=== PATIENT | female | born 1965 | race Caucasian/White ===

== ENCOUNTER 2019-10-04 09:29 | Outpatient (CLI) | payer OTHER, SELFPAY ==
--- NOTE | 2019-10-04 09:40 | MM_ITS ---
WS: [id number] BILATERAL DIGITAL SCREENING MAMMOGRAM WITH CAD CLINICAL INFORMATION: SCREENING HISTORY: Screening mammogram. NEW RIGHT BREAST LUMP PAINFUL. COMPARISON: November 04, 2018 TECHNIQUE: Bilateral CC and MLO views. FINDINGS: Fatty-replaced breasts bilaterally. No suspicious focal mass, asymmetry, calcifications, or technology architect ural distortion. Lucent centered calcifications. No definite mammographic abnormalities in the area o f palpable concern. However, recommend spot compression views and ultrasound of the palpable abnormal ity if persistent. Left breast is unchanged. MM/[place] [id number] IMPRESSION: BI-RADS: 0-Incomplete: Need additional imaging evaluation FOLLOW UP: Need Additional Imaging
== END 2019-10-04 09:30 | disposition home or self-care (01) ==
LOC: RADSHAW 09:36
PROVIDERS: Family Provider Family Medicine; PCP Family Medicine; Visit Provider Family Medicine
DX: Z12.31 Encounter for screening mammogram for malignant neoplasm of breast (principal)
CPT/HCPCS: 77067

== ENCOUNTER 2019-10-11 09:40 | Outpatient (CLI) | payer OTHER, SELFPAY ==
--- NOTE | 2019-10-11 10:14 | MM_ITS ---
WS: [id number] Right breast diagnostic digital mammogram, 10/11/2019 Clinical Data: RIGHT BREAST PAIN Comparison: 10/04/2019, 11/04/2018, 10/15/2017, 09/04/2016, 02/04/2015, 02/02/2014. Findings: There are no spiculated masses or clustered calcifications. There are no secondary signs of carcinoma . The breast parenchymal pattern reveals fat replacement. MM/[place] [id number] Impression: 1. Negative additional views of the right breast. 2. Recommend annual screening mammograms and clinical follow-up. BIRADS: 1-Negative FOLLOW UP: See Report The CAD cloth checker was used.
--- NOTE | 2019-10-11 10:44 | US_ITS ---
WS: [id number] Right breast ultrasound, 10/11/2019 Clinical Data: RT BREAST PAIN Comparison: Right breast mammogram, 10/11/2019 Findings: In the lateral aspect of the right breast at the 3:00 position there is a small simple cyst measuring 0.26 x 0.31 x 0.36 cm. No abnormal masses were noted. US/US breast RT limited* [id number] Impression: 1. Negative for 6 negative right breast abnormality. 2. Recommend clinical follow-up and annual screening mammograms. BIRADS: 1-Negative FOLLOW UP: See Report
== END 2019-10-11 09:41 | disposition home or self-care (01) ==
LOC: RADSHAW 09:43
PROVIDERS: Family Provider Family Medicine; PCP Family Medicine; Visit Provider Family Medicine
DX: N64.4 Mastodynia (principal)
CPT/HCPCS: 76642; 77065

== ENCOUNTER 2020-04-23 07:27 | Day surgery (SDC) | payer OTHER, SELFPAY ==
[2020-04-19 13:46] VITALS: BMI 31.3
[2020-04-23 07:43] VITALS: BMI 31.3
--- NOTE | 2020-04-23 07:45 | P.HP_ITS ---
Same Day Surgery H&P Indication for Procedure/HPI DATE OF PROCEDURE: April 23, 2020 CHIEF COMPLAINT/INDICATIONFOR SURGICAL PROCEDURE: Rectal polyp PREOP DIAGNOSIS: Rectal polyp PLANNED PROCEDRUE: Operation Date: 04/23/20 09:00 Proposed Procedures p Sigmoidoscopy 62901 Z86.010(Not Applicable) - Jorge Israel MD Medications/Allergies* Home Medications Medication Instructions Recorded Confirmed Type atorvastatin 10 mg tablet 5 mg PO DAILY tab 02/12/20 04/23/20 History carvedilol 3.125 mg tablet 3.125 mg PO BID 02/12/20 04/23/20 History doxycycline hyclate 100 mg capsule 100 mg PO DAILY PRN 02/12/20 04/23/20 History levothyroxine 50 mcg capsule 50 mcg PO DAILY 02/12/20 04/23/20 History metformin 500 mg tablet 500 mg PO DAILY 02/12/20 04/23/20 History sumatriptan succinate 100 mg tablet 100 mg PO Q2H PRN 02/12/20 04/19/20 History desvenlafaxine succinate 50 mg PO DAILY 02/19/20 04/23/20 History glimepiride 2 mg PO DAILY 02/19/20 04/23/20 History meloxicam 15 mg PO DAILY 02/19/20 04/23/20 History Allergies/Adverse Reactions Allergy/AdvReac Type Severity Reaction Status Date / Time strawberry Allergy ALGY-Anaphy Verified 04/19/20 13:42 laxis lisinopril AdvReac Coughing Verified 04/19/20 13:42 Pertinent History/Comorbid Conditions* Medical History (Updated 02/19/20 @ 14:21 by Julián Woods MD) Diabetes mellitus Diagnosed in 2015-on medication. Last hemoglobin A1c was in the beginning of 2019 and was less than 7. Managed by Dr. Pizano. Does not have an clerical aide teacher HTN (hypertension), benign 2019--controlled with medication. Managed by primary care provider Hypercholesterolemia Controlled with medication managed by primary care provider Dr. Pizano Hypothyroidism Diagnosed in 1999 and controlled with medication managed by PMD. Does not have an clerical aide teacher. Migraine Controlled with sumatriptan as needed. Does not have a neurologist and follows up with primary care provider No pertinent past medical history Denies asthma, seizures, DVT/PE. PMD: Dr. Pizano Surgical History (Updated 02/19/20 @ 14:21 by Julián Woods MD) History of cholecystectomy Laparoscopic procedure in 2010 History of hysteroscopy Had some sort of her hysteroscopic procedure by Dr. Lam in the 1980s and at this time was diagnosed with having 2 cervixes. She does not remember many details about this procedure History of tonsillectomy At the age of 7 Family History (Updated 02/19/20 @ 15:06 by Dulce Marinelli, HEBERT) Diabetes Sister Father Heart disease Sister Father Brother Hyperlipidemia Father Breast cancer Family/Other paternal aunt, diagnosed in her 60s Cancer of kidney Sister Hypertension Mother Thyroid condition Mother Stroke Sister x 2 Denies family history of Colon cancer Ovarian cancer Anesthesia complication Bleeding disorder Uterine cancer Social History Smoking and tobacco status: never smoked Additional social history: Tobacco use: Denies Alcohol use: Denies Drug use: Denies 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
[2020-04-23] MEDS: Fleet Enema 133 mL Enema PR (08:00)
[2020-04-23 08:33] VITALS: BP 144/95; PULSE 74; RESP 18; TEMP 36.8; O2SAT 97
[2020-04-23 08:43] LABS: Glucose Point of Care 179 mg/dL (70-110)
[2020-04-23] MEDS: sodium chloride 0.9% 1,000 ML 30 ML IV (08:43)
--- NOTE | 2020-04-23 08:51 | ANES.PREANE2 ---
Pre-Anesthetic Assessment Pre-Anesthetic Assessment: Height/Weight: Height 1.7 m Weight 90.718 kg Temp Pulse Resp BP Pulse Ox 98.3 F 74 18 144/95 97 04/23/20 08:33 04/23/20 08:33 04/23/20 08:33 04/23/20 08:33 04/23/20 08:33 Preop Diagnosis: TVA rectum Proposed Procedure: Operation Date: 04/23/20 09:00 Proposed Procedures p Sigmoidoscopy 20785 Z86.010(Not Applicable) - Jorge Israel MD Familial anesthetic complications: None Was Beta Naa taken within 24 hours: Yes Last intake: Intake Last Liquid Date 04/22/20 Last Liquid Time 14:00 Last Solid Date 04/22/20 Last Solid Time 14:00 Social: Social History: No alcohol and No tobacco Exam: Pre-Anes Outpt Exam: alert, oriented x 3, clear to auscultation bilaterally and regular rate & rhythm Airway: Cervical ROM: WNL MP: 4 Dentition: Other (missing teeth) CV/HEM: CV/HEM: HTN Metabolic: Metabolic: DM, Hyperlipidemia and Thyroid Anesthetic Plan: ASA status: 2 Anesthesia: MAC Risk of > 500 ml blood loss (7ml/kg in children): No Meds/Allergies Current Medications: Current Medications Generic Name Dose Route Start Last Admin Trade Name Freq PRN Reason Stop Dose Admin Sodium Chloride 1,000 mls @ 30 ml s/hr 04/23/20 08:45 04/23/20 08:43 Sodium Chloride 0.9% IV 04/24/20 08:44 30 mls/hr .Q24H LOIS Administration PFSH Anesthesia PFSH: Medical History Diabetes mellitus Diagnosed in 2015-on medication. Last hemoglobin A1c was in the beginning of 2019 and was less than 7. Managed by Dr. Pizano. 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 unix system administrator HTN (hypertension), benign 2019--controlled with medication. Managed by primary care provider Hypercholesterolemia Controlled with medication managed by primary care provider Dr. Pizano Hypothyroidism Diagnosed in 1999 and controlled with medication managed by PMD. 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 unix system administrator. Migraine Controlled with sumatriptan as needed. Does not have a neurologist and follows up with primary care provider No pertinent past medical history Denies asthma, seizures, DVT/PE. PMD: Dr. Pizano Surgical History History of cholecystectomy Laparoscopic procedure in 2010 History of hysteroscopy Had some sort of her hysteroscopic procedure by Dr. Lam in the 1980s and at this time was diagnosed with having 2 cervixes. She does not remember many details about this procedure History of tonsillectomy At the age of 7 Family History Mother Hypertension Thyroid condition Family/Other Breast cancer paternal aunt, diagnosed in her 60s Sister Diabetes Stroke x 2 Heart disease Cancer of kidney Father Diabetes Heart disease Hyperlipidemia Brother Heart disease Denies family history of Colon cancer Ovarian cancer Anesthesia complication Bleeding disorder Uterine cancer Social History (Updated 02/19/20 @ 14:22 by Julián Woods MD) Smoking and tobacco status: never smoked Additional social history: Tobacco use: Denies Alcohol use: Denies Drug use: Denies 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
[2020-04-23 10:14] VITALS: BP 123/71; PULSE 68; RESP 18; TEMP 36.2; O2SAT 99
[2020-04-23 10:28] VITALS: BP 139/54; PULSE 67; RESP 18; O2SAT 95
--- NOTE | 2020-04-23 10:40 | ANE.PACU2 ---
Inpatient post-anesthesia follow up: Airway intact: Yes Vital signs: Temperature 97.1 F Pulse Rate 67 Respiratory Rate 18 Blood Pressure 139/54 Pulse Oximetry 95 Oxygen Delivery Me thod Room Air Oxygen Flow Rate 4 Fraction of Inspir ed Oxygen Hydration adequate: Yes Nausea and vomiting: No Pain level: 1 Mental status: Baseline
== END 2020-04-23 10:43 | disposition home or self-care (01) ==
PROVIDERS: PCP Family Medicine; Visit Provider Surgery
PROC: 0DJD8ZZ Inspection of Lower Intestinal Tract, Via Natural or Artificial Opening Endoscopic (ICD-10-PCS; CPT 45330; principal; 2020-04-23 09:00)
DX: Z86.010 Personal history of colon polyps (principal); Z90.49 Acquired absence of other specified parts of digestive tract; I10 Essential (primary) hypertension; E11.9 Type 2 diabetes mellitus without complications; E78.5 Hyperlipidemia, unspecified; E03.9 Hypothyroidism, unspecified; Z79.84 Long term (current) use of oral hypoglycemic drugs
CPT/HCPCS: 12345; 36416; 45330; 82962; J2704; J7030

== ENCOUNTER 2020-04-29 14:28 | Outpatient (CLI) | payer OTHER, SELFPAY ==
--- NOTE | 2020-04-29 15:08 | US_ITS ---
WS: [id number] RENAL ULTRASOUND URINARY BLADDER ULTRASOUND HISTORY: HEMATURIA COMPARISON: 11/06/2013 TECHNIQUE: 2-D and color Doppler imaging of the kidney submitted. Right kidney: 11.5 cm x 6.2 cm x 6.6 cm. Normal echogenicity with no hydronephrosis or mass. Left kidney: 12.8 cm x 6.4 cm x 6.0 cm. Normal size and echogenicity. Exophytic low-attenuation mass from the inferior LEFT kidney measures 3 .3 x 2.6 x 3.3 cm. Very slightly increased in size from the prior study. This is probably minimally c omplex cyst. Aorta: Normal. Urinary Bladder: Normal distention. US/US renal BI with bladder IMPRESSION: 1. Low-attenuation mass in the inferior pole the LEFT kidney is probably minim ally complex cyst. Minimal increase in size since 2013. As this is not complete ly cystic consider a CT follow-up evaluation to evaluate for low-grade neoplasm . Renal mass CT protocol recommended. 2. No hydronephrosis.
== END 2020-04-29 14:29 | disposition home or self-care (01) ==
LOC: US 14:34
PROVIDERS: PCP Family Medicine; Visit Provider Family Medicine
DX: R31.9 Hematuria, unspecified (principal); N28.89 Other specified disorders of kidney and ureter
CPT/HCPCS: 76770; 76857

== ENCOUNTER → 2020-05-14 12:33 | Outpatient (BNVA) | payer OTHER, SELFPAY | PROVIDERS: PCP Family Medicine; Visit Provider Family Medicine | DX: Z11.59 Encounter for screening for other viral diseases (principal) | CPT/HCPCS: 87635 ==

== ENCOUNTER 2020-05-28 12:28 | Outpatient (CLI) | payer OTHER, SELFPAY ==
--- NOTE | 2020-05-28 12:33 | CT_ITS ---
WS: [id number] CT scan of the abdomen with and without IV contrast Additional two-dimensional coronal and sagittal r econstruction was performed. 05/28/2020 Clinical Data: RENAL MASS Comparison: Renal ultrasound, 04/29/2020. DLP: 1275.[address] scans at [facility] use at least one of these dose optimization techniques: automat ed exposure control; mA and/or kV adjustment per patient size (includes targeted exams where dose is matched to clinical indication); or iterative reconstruction. Findings: The kidneys show no right renal calculi and a small central nonobstructing left renal calculus.. Ther e are 2 small right intrarenal cysts. There is a 3.3 cm simple cyst of the inferior pole of the left kidney. No renal masses or hydronephrosis can be seen. The lower lungs show no nodules, masses or effusions. The liver, spleen, adrenal glands and pancreas are normal. There are clips in the gallbladder fossa from cholecystectomy. The abdominal aorta is normal in size. No abscess, adenopathy, ascites, mass, obstruction or free air is seen. No appendicitis is seen. The stomach, small bowel and visualized colon are unremarkable.. There is a small fat-containing umbilical hernia. Minimal degenerative changes of the lumbar vertebral bodies is seen. CT/CT abdomen wo/w con [id number] Impression: 1. Simple cyst of the inferior pole left kidney measuring 3.3 cm. 2. Small right intrarenal cysts and small nonobstructing central left renal george culus. 3. Negative for acute intra-abdominal abnormalities.
[2020-05-28] MEDS: iohexol 300 mg/mL 100 mL Btl IV (12:53)
== END 2020-05-28 12:29 | disposition home or self-care (01) ==
PROVIDERS: PCP Family Medicine; Visit Provider Family Medicine
DX: N28.89 Other specified disorders of kidney and ureter (principal); Q61.02 Congenital multiple renal cysts
CPT/HCPCS: 74170; Q9967

== ENCOUNTER 2020-11-18 14:55 | Outpatient (CLI) | payer OTHER, SELFPAY ==
--- NOTE | 2020-11-18 14:57 | MM_ITS ---
WS: [id number] BILATERAL DIGITAL SCREENING MAMMOGRAPHY WITH CAD CLINICAL INFORMATION: SCREENING HISTORY: Screening mammogram. No current complaints. COMPARISON: October 04, 2019 and October 11, 2019 TECHNIQUE: Bilateral CC and MLO views. FINDINGS: Scattered fibroglandular densities bilaterally. Punctate and lucent centered calcifications. No suspi cious focal mass, asymmetry, calcifications, or architectural distortion. No evidence of malignancy. MM/[place] [id number] IMPRESSION: BI-RADS: 2-Benign FOLLOW UP: 1 Year Follow-up Recommend return to annual screening mammography.
== END 2020-11-18 14:56 | disposition home or self-care (01) ==
LOC: RADSHAW 14:56
PROVIDERS: PCP Family Medicine; Visit Provider Family Medicine
DX: Z12.31 Encounter for screening mammogram for malignant neoplasm of breast (principal)
CPT/HCPCS: 77067

== ENCOUNTER → 2021-02-24 13:20 | Outpatient (BNVA) | payer OTHER, SELFPAY | PROVIDERS: PCP Family Medicine; Visit Provider Obstetrics & Gynecology | DX: Z12.4 Encounter for screening for malignant neoplasm of cervix (principal) | CPT/HCPCS: 88175 ==

== ENCOUNTER → 2021-08-28 16:28 | Outpatient (BNVA) | payer OTHER, SELFPAY | PROVIDERS: PCP Family Medicine; Visit Provider Nurse Practitioner | DX: M25.562 Pain in left knee (principal) | CPT/HCPCS: 73562 ==

== ENCOUNTER 2022-02-23 08:10 | Outpatient (CLI) | payer OTHER, SELFPAY ==
--- NOTE | 2022-02-23 08:19 | MM_ITS ---
WS: [id number] BILATERAL SCREENING DIGITAL BREAST TOMOSYNTHESIS MAMMOGRAM WITH CAD HISTORY: SCREENING COMPARISON: 12/15/2020 and 10/04/2019 Bilateral CC and MLO views with tomosynthesis and synthetic mammography submitted. Computer aided det ection analyzed. Breast composition: There are scattered areas of fibroglandular density. No suspicious masses, microc alcifications or architectural distortion. Benign calcifications in each breast. MM/[place] [id number] IMPRESSION: BI-RADS: 2-Benign FOLLOW UP: 1 Year Follow-up
== END 2022-02-23 08:11 | disposition home or self-care (01) ==
LOC: RAD 08:10
PROVIDERS: PCP Family Medicine; Visit Provider Family Medicine
DX: Z12.31 Encounter for screening mammogram for malignant neoplasm of breast (principal); E03.9 Hypothyroidism, unspecified; I10 Essential (primary) hypertension; K21.9 Gastro-esophageal reflux disease without esophagitis; E11.9 Type 2 diabetes mellitus without complications
CPT/HCPCS: 77063; 77067; 80053; 80061; 83036; 84443

== ENCOUNTER → 2022-02-25 09:24 | Outpatient (BNVA) | payer OTHER, SELFPAY | PROVIDERS: PCP Family Medicine; Visit Provider Obstetrics & Gynecology | DX: R30.0 Dysuria (principal) | CPT/HCPCS: 87086 ==

== ENCOUNTER → 2022-03-31 15:10 | Outpatient (BNVA) | payer OTHER, SELFPAY | PROVIDERS: PCP Family Medicine; Visit Provider Nurse Practitioner Women's Health | DX: N85.2 Hypertrophy of uterus (principal) | CPT/HCPCS: 76830 ==

== ENCOUNTER → 2022-06-01 07:58 | Outpatient (BNVA) | payer OTHER, SELFPAY | PROVIDERS: PCP Family Medicine; Visit Provider Family Medicine | DX: R79.89 Other specified abnormal findings of blood chemistry (principal); E03.9 Hypothyroidism, unspecified; I10 Essential (primary) hypertension; E11.9 Type 2 diabetes mellitus without complications | CPT/HCPCS: 80053; 80061; 83036; 84443 ==

== ENCOUNTER 2022-06-30 11:25 | Day surgery (SDC) | payer OTHER, SELFPAY ==
[2022-06-29 12:35] VITALS: BMI 31.8
[2022-06-30] VITALS (9 sets, daily range): BP systolic 103–150; BP diastolic 60–91; PULSE 65–98; RESP 17–76; TEMP 36.2–36.7; O2SAT 96–100
--- NOTE | 2022-06-30 11:34 | ANES.PREANE2 ---
Pre-Anesthetic Assessment Height/Weight: Height 1.7 m Weight 92.079 kg Preop Diagnosis: Thickened endometrium Operation Date: 06/30/22 11:20 Proposed Procedures p Hysteroscopy, dilation and curettage with Myosure 75268,R93.89(Not Applicable) - Daysi Menchaca MD s Dilation And Curettage (D&C)(Not Applicable) - Daysi Menchaca MD Familial anesthetic complications: None Was Beta Naa taken within 24 hours: Yes Was Clonidine taken within 24 hours: N/A Last intake: > 8 hrs Social No alcohol and No tobacco Exam alert, oriented x 3, clear to auscultation bilaterally and regular rate & rhythm Airway Mallampati: Class III Dentition: other (missing teeth) CV/HEM Hypertension Metabolic Diabetes Mellitus, Hyperlipidemia and Thyroid Disease Anesthetic Plan ASA status: 2 Anesthesia: General Risk of > 500 ml blood loss (7ml/kg in children): No Medications/Allergies Home Medications Medication Instructions Recorded Confirmed Last Taken Type carvedilol 3.125 mg tablet 3.125 mg PO BID 02/12/20 06/29/22 06/29/22 08:00 History levothyroxine 50 mcg capsule 50 mcg PO DAILY 02/12/20 06/29/22 06/29/22 07:00 History desvenlafaxine succinate 50 mg 50 mg PO DAILY 02/19/20 06/29/22 06/28/22 20:00 History tablet,extended release 24 hr (Pristiq) glimepiride 2 mg tablet 2 mg PO BID 02/19/20 06/29/22 06/29/22 08:00 History pantoprazole 40 mg tablet,delayed 40 mg PO QAM 6 weeks #42 tabs 08/02/20 06/29/22 06/29/22 08:00 Rx release (Protonix) sumatriptan succinate 100 mg tablet 100 mg PO Q2H PRN headache #10 tabs 02/26/22 06/29/22 Unknown Rx trospium 20 mg tablet 20 mg PO BID #60 tabs 05/06/22 06/29/22 06/29/22 07:30 Rx misoprostol 200 mcg tablet 600 mcg PO Q6H 2 days #24 tabs 06/26/22 06/29/22 06/29/22 12:00 Rx (Cytotec) metformin 500 mg tablet 500 mg PO BID 06/29/22 06/29/22 06/29/22 08:00 History Allergies Allergy/AdvReac Type Severity Reaction Status Date / Time strawberry Allergy ALGY-Anaphy Verified 06/30/22 11:36 laxis lisinopril AdvReac Coughing Verified 06/30/22 11:36 [facility] Anesthesia Medical History Diabetes mellitus Diagnosed in 2015-on medication. Managed by Dr. Pizano. 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 Managed by primary care provider Hypercholesterolemia Diagnosed in 2017. Was on medication in the past. Was taken off medication and 2020 and is doing well. Hypothyroidism Diagnosed in 1999 and controlled with medication managed by PMD. Does not have an electric sign wirer. Migraine Controlled with sumatriptan as needed. Does not have a neurologist and follows up with primary care provider Surgical History History of cholecystectomy Laparoscopic procedure in 2009 History of hysteroscopy Had some sort of her hysteroscopic procedure by Dr. Lam in the 1980s and at this time was diagnosed with having 2 cervixes. She does not remember many details about this procedure History of tonsillectomy At the age of 7 Hx of sigmoidoscopy (04/23/20) Family History Mother Hypertension Thyroid condition Family/Other Breast cancer paternal aunt, diagnosed in her 60s Sister Diabetes Stroke x 2 Heart disease Cancer of kidney Father Diabetes Heart disease Hyperlipidemia Brother Heart disease Denies family history of Colon cancer Ovarian cancer Anesthesia complication Bleeding disorder Uterine cancer Social History Smoking and tobacco status: never smoked Data Anesthesia Cardiac Studies: No Data to Display
[2022-06-30] MEDS: sodium chloride 0.9% 1,000 ML 30 ML IV (11:55)
--- NOTE | 2022-06-30 11:59 | W.PM.OPSUD ---
Surgery/Procedure H&P Update DATE OF PROCEDURE: June 30, 2022 DATE H&P PERFORMED: 06/26/22 H&P UPDATE INFORMATION: I have reviewed H&P completed within last 30 days, I have examined patient prior to procedure and No changes to prior documentation PREOP DIAGNOSIS: Thickened endometrium PLANNED PROCEDURE: Operation Date: 06/30/22 11:20 Proposed Procedures p Hysteroscopy, dilation and curettage with Myosure 24008,R93.89(Not Applicable) - Daysi Menchaca MD s Dilation And Curettage (D&C)(Not Applicable) - Daysi Menchaca MD Related Problem List Diagnoses (1) Enlarged uterus: (2) Thickened endometrium:
[2022-06-30 12:02] LABS: Glucose Point of Care 118 mg/dL (70-110)
[2022-06-30] MEDS: ceFAZolin 2,000 MG in sodium chloride 0.9% (plus) 50 ML 100 MG IV (12:08)
[2022-06-30] MEDS: miSOPROStol 200 mcg Tablet 800 MCG VAGINAL (12:48)
--- NOTE | 2022-06-30 13:18 | P.OP_ITS ---
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 She was prepped and draped in the normal sterile fashion in the dorsal lithotomy position in [facility]. A weighted speculum was placed into the vagina and the anterior lip of the left cervix grasped with a single-tooth tenaculum. The uterus was sounded to 8 cm. The cervix was dilated to 16 German. The hysteroscope was advanced into the endometrial cavity. There was a large anterior fibroid visualized. The MyoSure device was activated and the tissue was removed. The hysteroscope was removed and the weighted speculum was placed into the right vagina and the anterior lip of the right cervix grasped with a single-tooth tenaculum. The uterus was unable to be sounded due to cervical stenosis. 800 mcg of cytotec was placed vaginally. After approximately 10 minutes, the cervix was hydro dilated with the hysteroscope. There was only scar tissue and no normal uterine tissue seen. I was unable to visualize the right tubal ostia. All instruments were removed. The patient tolerated the procedure well. Sponge lap and needle counts were correct x3. She was taken to the recovery room in stable condition.
--- NOTE | 2022-06-30 13:18 | SUR.PHASEI ---
1308 PT TO PACU AWAKES THEN ROLLS TO RT SIDE AND BACK TO SLEEP, WARM BLANKETS X 3 TO PT, MONITOR SR WITH NO ECTOPY NOTED RESP EVEN AND UNLABORED,SATS 97% ON RA, IV TO RT WRIST PATENT WITH NS 600ML UP AT KVO RATE, ID BRACELET TO LT WRIST, PT ID'D WITH 2 IDENTIFIERS, SCDS ON BILATERALLY. 1320 PT AWAKES TO VOICE, NO COMPLAINTS VOICED, PT RESPONDS VERBALLY AND APPROPRIATELY TO QUESTIONS VSS .
--- NOTE | 2022-06-30 13:28 | ANE.PACU2 ---
Inpatient post-anesthesia follow up: Airway intact: Yes Vital signs: Temperature 97.2 F Pulse Rate 76 Respiratory Rate 17 Blood Pressure 120/80 Pulse Oximetry 97 Oxygen Delivery Me thod Room Air Oxygen Flow Rate Fraction of Inspir ed Oxygen Hydration adequate: Yes Nausea and vomiting: No Pain level: 1 Mental status: Baseline
--- NOTE | 2022-06-30 13:37 | PM.DCS ---
Discharge Providers Date of Admission: 06/30/22 Date of Discharge: June 30, 2022 Attending Provider at Discharge: Daysi Menchaca MD Primary Care Provider: Twan Pizano MD Diagnoses at Discharge Discharge Diagnosis (1) Enlarged uterus: Status: Acute (2) Thickened endometrium: Status: Acute Reason for Visit Reason for Visit: Abnormal findings on diagnostic imaging of other s Hospital Course Hospital Course The patient was admitted for surgery. She did well postoperatively and was ready for discharge. Discharge Data Studies Completed and Pending Pending at discharge Category Date Time Status Pathology: Surgical [PTH] Routine Pth 06/30/22 13:10 Received Laboratory Results POC Glucose 118 mg/dL (70-110) H 06/30/22 11:52 Vitals Last Vital Signs Temp 97.7 F 06/30/22 13:34 Pulse 78 06/30/22 13:34 Resp 18 06/30/22 13:34 BP 113/64 06/30/22 13:34 Pulse Ox 98 06/30/22 13:34 O2 Del Method 06/30/22 13:34 Discharge Plan Discharge Patient Disposition: Home Condition: Stable Prescriptions: Continued levothyroxine 50 mcg capsule 50 mcg PO DAILY carvedilol 3.125 mg tablet 3.125 mg PO BID Rx Instructions: must administer with a meal/food pantoprazole [Protonix] 40 mg tablet,delayed release (DR/EC) 40 mg PO QAM 42 Days Qty: 42 0RF sumatriptan succinate 100 mg tablet 100 mg PO Q2H PRN (Reason: headache) Qty: 10 11RF Rx Instructions: do not exceed 2 doses per 24 hrs misoprostol [Cytotec] 200 mcg tablet 600 mcg PO Q6H 2 Days Qty: 24 0RF Rx Instructions: start 06/28 at 6 pm. take every 6 hours. Last dose 12:00 pm 06/30 trospium 20 mg tablet 20 mg PO BID Qty: 60 6RF Rx Instructions: administer on an empty stomach glimepiride 2 mg tablet 2 mg PO BID desvenlafaxine succinate [Pristiq] 50 mg tablet extended release 24 hr 50 mg PO DAILY metformin 500 mg tablet 500 mg PO BID Discharge Orders: Discharge Order (Routine); Ordered 06/30/22 Ordered By: Daysi Menchaca Discharge Attestations Time Spent in Discharge Care*: less than 30 min Quality Metrics Clinical Quality Measures [ No reported AMI, CVA or VTE this stay] Coding Level of Care Code Acute Chg FW DC note Diagnoses Enlarged uterus N85.2 Thickened endometrium R93.89
== END 2022-06-30 14:13 | disposition home or self-care (01) ==
PROVIDERS: PCP Family Medicine; Visit Provider Obstetrics & Gynecology
PROC: 0UDB8ZZ Extraction of Endometrium, Via Natural or Artificial Opening Endoscopic (ICD-10-PCS; CPT 58558; principal; 2022-06-30 11:10)
PROC: (CPT 58120; 2022-06-30 11:10)
DX: R93.89 Abnormal findings on diagnostic imaging of other specified body structures (principal); N85.2 Hypertrophy of uterus; I10 Essential (primary) hypertension; E11.9 Type 2 diabetes mellitus without complications; E78.5 Hyperlipidemia, unspecified; E78.00 Pure hypercholesterolemia, unspecified; E03.9 Hypothyroidism, unspecified
CPT/HCPCS: 58558; 36416; 82962; 88305; J0690; J1100; J2250; J2405; J2704; J3010; J7030

== ENCOUNTER 2022-11-14 06:14 | Emergency (ER) | payer OTHER, SELFPAY ==
--- NOTE | 2022-11-14 06:20 | XRR_ITS ---
PROCEDURE INFORMATION: Exam: XR Chest Exam date and time: 11/14/2022 6:44 AM Age: 57 years old Clinical indication: Dyspnea; Additional info: Dyspnea/cough TECHNIQUE: Imaging protocol: Radiologic exam of the chest. Views: 1 view. COMPARISON: CT abdomen wo/w con [id number] 05/28/2020 12:49 PM FINDINGS: Lungs: Unremarkable. No consolidation. Pleural spaces: Unremarkable. No pleural effusion. No pneumothorax. Heart/Mediastinum: Unremarkable. No cardiomegaly. Bones/joints: Unremarkable. XR/XR chest 1V portable [id number] IMPRESSION: No acute findings.
--- NOTE | 2022-11-14 06:20 | ECG_ITS ---
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 Measurements Intervals [place] Rate: 66 P: 61 TX: 175 QRS: 28 QRSD: 80 T: 63 QT: 405 QTc: 425 Interpretive Statements SINUS RHYTHM No previous ECG available for comparison Electronically Signed On 11-14-2022 16:38:39 CDT by Christopher Kam M.D. [email or web address]
[2022-11-14 06:22] VITALS: BP 182/105; PULSE 69; RESP 24; TEMP 36.8; O2SAT 97; BMI 31.3
[2022-11-14 06:24] VITALS: PULSE 111; RESP 20; O2SAT 96
--- NOTE | 2022-11-14 06:31 | CTR_ITS ---
PROCEDURE INFORMATION: Exam: CT Abdomen And Pelvis Without Contrast Exam date and time: 11/14/2022 6:47 AM Age: 57 years old Clinical indication: Abdominal pain; Flank; Left; Prior surgery; Patient HX: Gb; Additional info: Flank pain TECHNIQUE: Imaging protocol: Computed tomography of the abdomen and pelvis without contrast. Radiation optimization: All CT scans at this facility use at least one of these dose optimization techniques: automated exposure control; mA and/or kV adjustment per patient size (includes targeted exams where dose is matched to clinical indication); or iterative reconstruction. REPORTING DATA: Count of CT and Cardiac NM exams in prior 12 months: This patient has received 0 known CTs and 0 known cardiac nuclear medicine studies in the 12 months prior to the current study. COMPARISON: CT abdomen wo/w con [id number] 05/28/2020 12:49 PM RADIATION DOSE METRICS: Total DLP (mGy-cm): 940.53 FINDINGS: Lungs: Chronic bilateral lower lobe pulmonary nodules are stable from comparison. Right lower lobe pulmonary nodule centrally calcified consistent with benign granuloma. Liver: Normal. No mass. Gallbladder and bile ducts: Cholecystectomy. Modest post cholecystectomy dilation of the common bile duct. Pancreas: Normal. No ductal dilation. Spleen: Normal. No splenomegaly. Adrenal glands: Normal. No mass. Kidneys and ureters: Mild left perinephric fat stranding. Mild severity left collecting system hydroureteronephrosis. 3 mm left proximal ureteral stone. Simple left renal lower pole cortical cyst. Stomach and bowel: Unremarkable. No obstruction. No mucosal thickening. Appendix: Normal appendix. Intraperitoneal space: Unremarkable. No free air. No significant fluid collection. Vasculature: Unremarkable. No abdominal aortic aneurysm. Lymph nodes: Unremarkable. No enlarged lymph nodes. Urinary bladder: Unremarkable as visualized. Reproductive: Unremarkable as visualized. Bones/joints: Unremarkable. No acute fracture. Moderate to severe disc disease changes at L3-L4, L4-L5, L5-S1. Soft tissues: Unremarkable. CT/CT kidney stone [id number] IMPRESSION: Left kidney obstructive uropathy secondary to ureterolithiasis. COMMENTS: Consistent with the [employer]'s Incidental Findings Committee white paper (J Am Johnathan Radiol 2018): Any incidental renal lesion less than 1 cm or classified as too small to characterize, or any incidental cystic renal lesion characterized as simple-appearing, is likely benign. No follow-up imaging is recommended for these lesions per consensus recommendations based on imaging criteria.
[2022-11-14] MEDS: ondansetron 2 mg/ML SDV 2 mL 4 MG IVP (06:38)
[2022-11-14 06:39] VITALS: RESP 18; O2SAT 96
[2022-11-14] MEDS: morphine 4 mg/mL SDV 1 mL IVP (06:39)
--- NOTE | 2022-11-14 06:39 | ED_ITS ---
HPI - Abdominal Pain General: Chief Complaint: Abdominal Pain Stated Complaint: left side pains, N/V, irregular hr Time Seen by Provider: 11/14/22 06:20 Source: patient Mode of arrival: ambulatory History of Present Illness: 57-year-old female presents emergency room with complaints of left-sided flank pain radiating down into the left lower quadrant. Pain is severe she is extremely uncomfortable moving continuously unable to find a comfortable position. Has been very nauseous vomited in the ER couple of times even after m edications given. Denies any hematuria. No diarrhea. No dysuria urgency or frequency has a history of previous nephrolithiasis. Patient had a home monitoring azeem that told her she had a irregular heart rate earlier she is presents here in a normal sinus rhythm with no acute changes on her EKG on the initial EKG. MD elicited complaint: abdominal pain Pertinent past history: none Onset (ago): hour(s) Location: L flank Severity: severe Quality: stabbing Migration to: LLQ Exacerbating factors: nothing Relieving factors: nothing Associated Symptoms: Denies anorexia, belching, bloating, change in bowel habits, change in stool character, chills, coffee ground emesis, constipation, GI cramping, diarrhea, dyspepsia, dysuria, excessive flatus, fever(s), heartburn, hematochezia, hematuria, hematemesis, fecal incontinence, loose stools, melena, nausea, poor appetite, syncope and vomiting Review of Systems Const: Denies: fever(s), chills, fatigue or malaise ENMT: Denies: throat pain, ear or mastoid pain, nasal discharge or nasal congestion Card: Denies: chest pain or syncope Resp: Denies: dyspnea, productive cough or non-productive cough GI: Reports: abdominal pain; Denies: nausea, vomiting, hematemesis, coffee ground emesis, heartburn, diarrhea, constipation, bloating, GI cramping, belching, excessive flatus, fecal incontinence, change in bowel habits, change in stool character, hematochezia or melena : Reports: flank pain; Denies: dysuria, urinary frequency, urinary urgency or hematuria Skin/Breast: Denies: rash or pruritus PFS ED PFSH: Medical History Diabetes mellitus Diagnosed in 2016-on medication. Managed by Dr. Pizano. Does not have an slurry tank tender Elevated LFTs History of colon polyps HTN (hypertension), benign 2018--controlled with medication. Managed by primary care provider Hypercholesterolemia Diagnosed in 2017. Was on medication in the past. Was taken off medication and 2020 and is doing well. Hypothyroidism Diagnosed in 1999 and controlled with medication managed by PMD. Does not have an slurry tank tender. Migraine Controlled with sumatriptan as needed. Does not have a neurologist and follows up with primary care provider Surgical History History of cholecystectomy Laparoscopic procedure in 2009 History of hysteroscopy Had some sort of her hysteroscopic procedure by Dr. Lam in the and at this time was diagnosed with having 2 cervixes. She does not remember many details about this procedure History of tonsillectomy At the age of 7 Hx of sigmoidoscopy (04/23/20) Family History Mother Hypertension Thyroid condition Family/Other Breast cancer paternal aunt, diagnosed in her 60s Sister Diabetes Stroke x 2 Heart disease Cancer of kidney Father Diabetes Heart disease Hyperlipidemia Brother Heart disease Denies family history of Colon cancer Ovarian cancer Anesthesia complication Bleeding disorder Uterine cancer Social History Smoking and tobacco status: never smoked Physical Exam Const: GENERAL APPEARANCE: cooperative ORIENTATION/CONSCIOUSNESS: Yes awake, Yes oriented to person, Yes oriented to place and Yes oriented to time HENMT: COMMON NORMALS: normocephalic, atraumatic and hearing grossly normal bilaterally HEAD & SCALP: normocephalic and atraumatic Resp: COMMON NORMALS: normal respiratory effort, No retractions, No use of accessory muscles and clear to auscultation bilaterally AUSCULTATION: clear to auscultation bilaterally Cardio: COMMON NORMALS: regular rate, regular rhythm and No murmurs present (Cardio) RATE: regular rate RHYTHM: regular rhythm GI: COMMON NORMALS: Soft to palpation and No hepatosplenomegaly present AUSCULTATION: Yes normoactive bowel sounds PALPATION: Yes Soft to palpation, No Tenderness to palpation present (GI), No Guarding due to palpation present (GI) and Yes No hepatosplenomegaly present : COMMON NORMALS: Yes no CVA tenderness BLADDER/KIDNEY EXAM: Yes no CVA tenderness Back/Pelvis: COMMON NORMALS: no CVA tenderness Extremity: COMMON NORMALS: normal to inspection, capillary refill normal, no clubbing, cyanosis or edema, no calf tenderness and no pedal edema Neuro: SENSORIUM/ORIENTATION: Yes oriented to person, Yes oriented to place and Yes oriented to time Skin: COMMON NORMALS: no rashes or lesions noted GENERAL SKIN EXAM: no rashes or lesions noted Course Vital Signs: Vital signs: Vital Signs Temperature 98.2 F 11/14/22 06:22 Pulse Rate 78 11/14/22 07:49 Respiratory Rate 19 H 11/14/22 07:49 Blood Pressure 176/99 11/14/22 07:49 Pulse Oximetry 95 11/14/22 07:49 Oxygen Delivery Me thod Room Air 11/14/22 07:49 MDM - Abdominal Pain Medical Decision Making Left ureteral lithiasis. Pain controlled at this point. Started on tamsulosin and strain urine. Additionally we will use Percocet and promethazine as needed for pain. Case management to make follow-up with urology return if pain uncontrolled. Medical Records I reviewed the patient's medical records. Lab Data I reviewed the patient's lab results. 11/14/22 06:30 11/14/22 06:30 Labs/Radiology: Radiology Impressions Chest X-Ray 11/14/22 06:20 IMPRESSION: No acute findings. Abdomen/Pelvis CT 11/14/22 06:31 IMPRESSION: Left kidney obstructive uropathy secondary to ureterolithiasis. COMMENTS: Consistent with the [employer]'s Incidental Findings Committee white paper (J Am Johnathan Radiol 2018): Any incidental renal lesion less than 1 cm or classified as too small to characterize, or any incidental cystic renal lesion characterized as simple-appearing, is likely benign. No follow-up imaging is recommended for these lesions per consensus recommendations based on imaging criteria. Laboratory Results WBC 7.7 10^3/uL (4.0-10.0) 11/14/22 06:30 RBC 4.71 10^6/uL (4.1-5.3) 11/14/22 06:30 Hgb 13.6 g/dL (11.5-15.3) 11/14/22 06:30 Hct 41.4 % (37.0-47.0) 11/14/22 06:30 MCV 87.9 fl (81-99) 11/14/22 06:30 MCH 28.9 pg (28.0-34.0) 11/14/22 06:30 MCHC 32.9 g/dL (30.0-36.0) 11/14/22 06:30 RDW 13.4 % (12.1-15.1) 11/14/22 06:30 Plt Count 314 10^3/cmm (130-400) 11/14/22 06:30 MPV 11.8 fL (7.4-10.4) H 11/14/22 06:30 Neut % (Auto) 63.5 % 11/14/22 06:30 Lymph % (Auto) 25.0 % 11/14/22 06:30 T[place] % (Auto) 9.7 % 11/14/22 06:30 Eos % (Auto) 1.0 % 11/14/22 06:30 Baso % (Auto) 0.4 % 11/14/22 06:30 Neut # (Auto) 4.86 10^3/uL (1.8-7.7) 11/14/22 06:30 Lymph # (Auto) 1.9 10^3/uL (0.8-4.8) 11/14/22 06:30 [place] # (Auto) 0.7 10^3/uL (0.2-0.9) 11/14/22 06:30 Eos # (Auto) 0.1 10^3/uL (0.0-0.8) 11/14/22 06:30 Baso # (Auto) 0.0 10^3/uL (0.0-0.1) 11/14/22 06:30 Nucleated RBC % (auto) 0 % 11/14/22 06:30 Nucleated RBCs # 0.0 /100WBC 11/14/22 06:30 Sodium 139 mmol/L (136-145) 11/14/22 06:30 Potassium 4.3 mmol/L (3.5-5.1) 11/14/22 06:30 Chloride 100 mmol/L (98-107) 11/14/22 06:30 Carbon Dioxide 24 mmol/L (22-29) 11/14/22 06:30 Anion Gap 19.3 (5-19) H 11/14/22 06:30 BUN 20 mg/dL (6-20) 11/14/22 06:30 Creatinine 0.7 mg/dL (0.5-0.9) 11/14/22 06:30 GFR Calculation 85.6 mL/min (90-130) L 11/14/22 06:30 Glucose 292 mg/dL (65-115) H 11/14/22 06:30 Calculated Osmolality 301 mOsm/kg (285-295) H 11/14/22 06:30 Calcium 8.7 mg/dL (8.5-10.5) 11/14/22 06:30 Total Bilirubin 0.6 mg/dL (0.15-1.2) 11/14/22 06:30 AST 92 U/L (0-32) H 11/14/22 06:30 ALT 122 U/L (0-33) H 11/14/22 06:30 Alkaline Phosphatase 73 U/L (35-105) 11/14/22 06:30 Total Protein 7.2 g/dL (6.6-8.7) 11/14/22 06:30 Albumin 4.4 g/dL (3.5-5.2) 11/14/22 06:30 Globulin 2.8 g/dL (1.3-4.6) 11/14/22 06:30 Urine Color Yellow (Yellow) 11/14/22 07:39 Urine Appearance Clear (CLEAR) 11/14/22 07:39 Urine pH 5 (5-7) 11/14/22 07:39 Ur Specific [place] 1.015 (1.005-1.030) 11/14/22 07:39 Urine Protein Neg (Negative) 11/14/22 07:39 Urine Glucose (UA) 4+ (Normal) H 11/14/22 07:39 Urine Ketones Negative (Negative) 11/14/22 07:39 Urine Blood 2+ (Negative) H 11/14/22 07:39 Urine Nitrate Negative (Negative) 11/14/22 07:39 Urine Bilirubin Neg (Negative) 11/14/22 07:39 Urine Urobilinogen Norm mg/dL (Negative) 11/14/22 07:39 Ur Leukocyte Esterase Negative (Negative) 11/14/22 07:39 Urine RBC 5-10 /hpf (0-2) H 11/14/22 07:39 Urine WBC 0-4 /hpf (0-5) H 11/14/22 07:39 Ur Squamous Epith Cells 0-4 /hpf (0-5) H 11/14/22 07:39 Amorphous Sediment Not Reportable 11/14/22 07:39 Urine Bacteria Trace /hpf (NONE) 11/14/22 07:39 Urine Mucus Trace /hpf 11/14/22 07:39 Discharge Plan Discharge Patient Disposition: Home Clinical Impression: Calculus of kidney, HTN (hypertension), benign Condition: Stable Prescriptions: New Percocet 7.5-325 mg tablet 1 tab PO Q6H PRN (Reason: pain) Qty: 20 0RF promethazine 25 mg tablet 25 mg PO Q6H PRN (Reason: nausea and vomiting) Qty: 20 0RF tamsulosin 0.4 mg capsule 0.4 mg PO DAILY Qty: 20 0RF No Action sumatriptan succinate 100 mg tablet 100 mg PO Q2H PRN (Reason: headache) Qty: 10 11RF Rx Instructions: do not exceed 2 doses per 24 hrs trospium 20 mg tablet 20 mg PO BID Qty: 60 6RF Rx Instructions: administer on an empty stomach desvenlafaxine succinate 50 mg tablet extended release 24 hr See Rx Instructions .ROUTE .COMPLEX Qty: 90 3RF Dose Instruction: TAKE 1 TABLET BY MOUTH EVERY DAY Rx Instructions: TAKE 1 TABLET BY MOUTH EVERY DAY glimepiride 2 mg tablet See Rx Instructions .ROUTE .COMPLEX Qty: 180 1RF Dose Instruction: TAKE 1 TABLET BY MOUTH TWO TIMES DAILY Rx Instructions: TAKE 1 TABLET BY MOUTH TWO TIMES DAILY pantoprazole 40 mg tablet,delayed release (DR/EC) See Rx Instructions .ROUTE .COMPLEX Qty: 90 3RF Dose Instruction: TAKE 1 TABLET BY MOUTH EVERY DAY Rx Instructions: TAKE 1 TABLET BY MOUTH EVERY DAY carvedilol 3.125 mg tablet See Rx Instructions .ROUTE .COMPLEX Qty: 60 3RF Dose Instruction: TAKE 1 TABLET BY MOUTH TWICE DAILY Rx Instructions: TAKE 1 TABLET BY MOUTH TWICE DAILY levothyroxine 50 mcg tablet See Rx Instructions .ROUTE .COMPLEX Qty: 30 10RF Dose Instruction: TAKE 1 TABLET BY MOUTH EVERY DAY Rx Instructions: TAKE 1 TABLET BY MOUTH EVERY DAY metformin 500 mg tablet 500 mg PO BID Discharge Orders: Discharge ED (Routine); Ordered 11/14/22 Ordered By: Kvng Esqueda Referrals: Twan Pizano MD [Primary Care Provider] - Discharge Diet: Usual diet Discharge Activity: Increase activity as tolerated Patient Instructions: Opioid Safety, Pain Management Activity Restrictions/Additional Instructions: You were seen today for nephrolithiasis. You have a 3 mm left kidney stone. At that size it is likely to pass. Recommend use of pain medications nausea medications for discomfort, tamsulosin will help the stone pass quicker. Strain urine to catch the stone. Case management make arrangements for follow-up with urology. Return to the emergency room if you have any worsening pain. Coding Level of Care Code ED Oenologist for Jg Donaldson
[2022-11-14] MEDS: sodium chloride 0.9% 1,000 ML 999 ML IV ×2 (06:40→07:45)
[2022-11-14 06:52] LABS: Basophils % 0.4 %; Eosinophils # 0.1 10^3/uL (0.0-0.8); Hematocrit 41.4 % (37.0-47.0); Hemoglobin 13.6 g/dL (11.5-15.3); Lymphocytes # 1.9 10^3/uL (0.8-4.8); Mean Corpuscular HGB Conc 32.9 g/dL (30.0-36.0); Mean Corpuscular Hemoglobin 28.9 pg (28.0-34.0); Mean Corpuscular Volume 87.9 fl (81-99); Mean Platelet Volume 11.8 fL (7.4-10.4); Monocytes # 0.7 10^3/uL (0.2-0.9); Monocytes % 9.7 %; Neutrophils # 4.86 10^3/uL (1.8-7.7); Neutrophils % 63.5 %; Nucleated Red Blood Cells % 0 %; Platelet Count 314 10^3/cmm (130-400); Red Blood Count 4.71 10^6/uL (4.1-5.3); Red Cell Distribution Width 13.4 % (12.1-15.1); White Blood Count 7.7 10^3/uL (4.0-10.0)
[2022-11-14] MEDS: morphine 4 mg/mL SDV 1 mL IM (07:15)
[2022-11-14 07:16] VITALS: BP 182/105; PULSE 77; RESP 16; O2SAT 97
[2022-11-14 07:18] LABS: Alanine Aminotransferase 122 U/L (0-33); Albumin Level 4.4 g/dL (3.5-5.2); Alkaline Phosphatase 73 U/L (35-105); Aspartate Amino Transferase 92 U/L (0-32); Blood Urea Nitrogen 20 mg/dL (6-20); Calcium 8.7 mg/dL (8.5-10.5); Carbon Dioxide 24 mmol/L (22-29); Chloride 100 mmol/L (98-107); Globulin 2.8 g/dL (1.3-4.6); Glomerular Filtration Rate 85.6 mL/min (90-130); Glucose 292 mg/dL (65-115); Osmolality Calculated 301 mOsm/kg (285-295); Sodium 139 mmol/L (136-145); Total Bilirubin 0.6 mg/dL (0.15-1.2); Total Protein 7.2 g/dL (6.6-8.7)
[2022-11-14 07:38] LABS: Anion Gap 19.3 (5-19); Potassium 4.3 mmol/L (3.5-5.1)
[2022-11-14] MEDS: HYDROmorphone 1 mg/mL INJ 1 mL 0.5 MG IVP ×2 (07:41→08:55)
[2022-11-14 07:49] VITALS: BP 176/99; PULSE 78; RESP 19; O2SAT 95
[2022-11-14 08:42] LABS: Add Urine Microscopic? YES; Bacteria Urine TRACE /hpf; Bilirubin Urine Neg (Negative); Blood Urine 2+ (Negative); Glucose Urine UA 4+ (Normal); Ketones Urine Negative (Negative); Leukocyte Esterase Urine Negative (Negative); Nitrate Urine Negative (Negative); Protein Urine Neg (Negative); Specific Gravity, Urine 1.015 (1.005-1.030); Squamous Epithelial Cell Urine 0-4 /hpf (0-5); Urine Appearance Clear (CLEAR); Urine Color Yellow (Yellow); Urobilinogen Urine Norm (Negative); WBC Urine 0-4 /hpf (0-5); pH Urine 5 (5-7)
[2022-11-14 08:43] LABS: Add Urine Culture? No; Mucus Urine TRACE /hpf
--- NOTE | 2022-11-14 10:24 | PC.NURSE ---
received pt and report from Natalia Daily RN on pt. Pt to have promethazine IM prior to discharge - waiting on discharge instructions and med order to be put in.
== END 2022-11-14 10:15 | disposition home or self-care (01) ==
PROVIDERS: Emergency Provider Family Medicine; PCP Family Medicine
DX: N20.0 Calculus of kidney (principal); N13.8 Other obstructive and reflux uropathy; I10 Essential (primary) hypertension; Z79.84 Long term (current) use of oral hypoglycemic drugs; E11.9 Type 2 diabetes mellitus without complications
CPT/HCPCS: 71045; 74176; 80053; 81001; 85025; 93005; 96361; 96374; 96375; 96376; 99285; J1170; J2270; J2405; J7030

== ENCOUNTER → 2023-03-11 15:18 | Outpatient (BNVA) | payer OTHER, SELFPAY | PROVIDERS: PCP Family Medicine; Visit Provider Family Medicine | DX: M19.90 Unspecified osteoarthritis, unspecified site (principal); E03.9 Hypothyroidism, unspecified; I10 Essential (primary) hypertension; E11.9 Type 2 diabetes mellitus without complications | CPT/HCPCS: 80053; 80061; 83036; 84443; 84550; 85025; 85651; 86140; 86160; 86162; 86235; 86255; 86376; 86618; 86666; 86757 ==

== ENCOUNTER → 2023-03-29 15:28 | Outpatient (BNVA) | payer OTHER, SELFPAY | PROVIDERS: PCP Family Medicine; Visit Provider Family Medicine | DX: M19.90 Unspecified osteoarthritis, unspecified site (principal) | CPT/HCPCS: 82607; 86003; 86008 ==

== ENCOUNTER 2023-04-16 16:36 | Outpatient (CLI) | payer OTHER, SELFPAY ==
--- NOTE | 2023-04-16 17:15 | US_ITS ---
WS: [id number] RIGHT UPPER QUADRANT ULTRASOUND HISTORY: elevated lfts COMPARISON: 11/06/2013 Liver: 18.6 cm in length. Mildly enlarged liver. Mild coarse echotexture from hepatic steatosis. No m ass or bile duct dilatation. Portal Vein: Normal hepatopetal flow with monophasic waveform. Gallbladder: Prior cholecystectomy. CBD: 0.9 cm Pancreas: Normal size and echogenicity. Right kidney: 11.3 cm in length. Normal size and echogenicity. No hydronephrosis or mass. Aorta and IVC: Unremarkable abdominal aorta and IVC. No ascites. IMPRESSION: 1. Prior cholecystectomy. 2. Mild hepatic steatosis and hepatomegaly. Similar to the prior examination from 11/06/2013. 3. Mildly dilated common bile duct is probably physiologic and related to prior cholecystectomy. Danya lar to the prior study from 2013.
== END 2023-04-16 16:37 | disposition home or self-care (01) ==
PROVIDERS: PCP Family Medicine; Visit Provider Family Medicine
DX: K76.0 Fatty (change of) liver, not elsewhere classified (principal); R16.0 Hepatomegaly, not elsewhere classified; K83.8 Other specified diseases of biliary tract; R74.8 Abnormal levels of other serum enzymes
CPT/HCPCS: 76705

== ENCOUNTER → 2023-04-22 12:10 | Outpatient (BNVA) | payer OTHER, SELFPAY | PROVIDERS: PCP Family Medicine; Visit Provider Internal Medicine Rheumatology | DX: Z79.899 Other long term (current) drug therapy (principal); M19.90 Unspecified osteoarthritis, unspecified site; R60.9 Edema, unspecified; M17.12 Unilateral primary osteoarthritis, left knee; M19.041 Primary osteoarthritis, right hand; M19.072 Primary osteoarthritis, left ankle and foot; R60.0 Localized edema; R79.89 Other specified abnormal findings of blood chemistry; Z71.85 Encounter for immunization safety counseling | CPT/HCPCS: 73130; 73562; 73630; 99204 ==

== ENCOUNTER 2023-05-11 15:10 | Outpatient (CLI) | payer OTHER, SELFPAY ==
--- NOTE | 2023-05-11 15:15 | MM_ITS ---
WS: [id number] BILATERAL 3D TOMOSYNTHESIS DIGITAL SCREENING MAMMOGRAPHY WITH CAD CLINICAL INFORMATION: SCREENING HISTORY: Screening mammogram. No current complaints. COMPARISON: 02/23/2022 TECHNIQUE: Bilateral CC and MLO views. FINDINGS: Scattered fibroglandular densities bilaterally. No suspicious focal mass, asymmetry, calcifications, or architectural distortion. No evidence of malignancy. Incidental punctate and lucent centered calci fications. IMPRESSION: MM/[place] [id number] BI-RADS: 2-Benign FOLLOW UP: 1 Year Follow-up Recommend return to annual screening mammography.
== END 2023-05-11 15:11 | disposition home or self-care (01) ==
LOC: RAD 15:11
PROVIDERS: PCP Family Medicine; Visit Provider Family Medicine
DX: Z12.31 Encounter for screening mammogram for malignant neoplasm of breast (principal)
CPT/HCPCS: 77063; 77067

== ENCOUNTER 2024-02-09 08:11 | Outpatient (CLI) | payer OTHER, SELFPAY ==
--- NOTE | 2024-02-09 08:14 | MM_ITS ---
WS: [id number] BILATERAL SCREENING DIGITAL TOMOSYNTHESIS MAMMOGRAM WITH CAD HISTORY: SCREENING COMPARISON: 02/23/2022, 05/11/2023, 10/11/2019 Bilateral CC and MLO views with tomosynthesis and synthetic mammography submitted. Computer aided det ection analyzed. Breast composition: There are scattered areas of fibroglandular density. No suspicious masses, microc alcifications or architectural distortion. Benign scattered calcifications. There is a slightly lobul ated mass measuring 5 x 6 mm in the anterior LEFT breast which has been present on the most recent ex aminations. Ultrasound from 04/05/2017 demonstrated a cyst. MM/[id number] IMPRESSION: BI-RADS: 2-Benign FOLLOW UP: 1 Year Follow-up
== END 2024-02-09 08:12 | disposition home or self-care (01) ==
LOC: RAD 08:11
PROVIDERS: PCP Family Medicine; Visit Provider Family Medicine
DX: Z12.31 Encounter for screening mammogram for malignant neoplasm of breast (principal); R92.323 Mammographic fibroglandular density, bilateral breasts; R92.1 Mammographic calcification found on diagnostic imaging of breast; N63.20 Unspecified lump in the left breast, unspecified quadrant
CPT/HCPCS: 77063; 77067

== ENCOUNTER → 2024-02-14 15:01 | Outpatient (BNVA) | payer OTHER, SELFPAY | PROVIDERS: PCP Family Medicine; Visit Provider Family Medicine | DX: I10 Essential (primary) hypertension (principal); E11.9 Type 2 diabetes mellitus without complications; E03.9 Hypothyroidism, unspecified; R79.89 Other specified abnormal findings of blood chemistry; Z00.00 Encounter for general adult medical examination without abnormal findings | CPT/HCPCS: 80053; 80061; 83036; 84443; 85025; 86140 ==

== ENCOUNTER → 2024-05-18 10:15 | Outpatient (BNVA) | payer OTHER, SELFPAY | PROVIDERS: PCP Family Medicine; Visit Provider Family Medicine | DX: E11.9 Type 2 diabetes mellitus without complications (principal); R79.89 Other specified abnormal findings of blood chemistry | CPT/HCPCS: 80053; 83036 ==

== ENCOUNTER 2025-02-12 08:27 | Outpatient (CLI) | payer OTHER, SELFPAY ==
--- NOTE | 2025-02-12 | MM_ITS ---
WS: [id number] BILATERAL SCREENING DIGITAL TOMOSYNTHESIS MAMMOGRAM WITH CAD HISTORY: ANNUAL SCREENING COMPARISON: 02/09/2024, 05/11/2023 and 02/23/2022 Bilateral CC and MLO views with tomosynthesis and synthetic mammography submitted. Computer aided detection analyzed. Breast composition: The breasts are almost entirely fatty. No suspicious masses, microcalcifications or architectural distortion. Scattered benign calcifications. No mass. MM/MM scr BI tomosynthesis [id number] IMPRESSION: BI-RADS: 2 - Benign. FOLLOW UP: 1 Year Follow-up
== END 2025-02-12 08:28 | disposition home or self-care (01) ==
PROVIDERS: PCP Family Medicine; Visit Provider Family Medicine
DX: Z12.31 Encounter for screening mammogram for malignant neoplasm of breast (principal)
CPT/HCPCS: 77063; 77067

== ENCOUNTER → 2025-04-12 08:57 | Outpatient (BNVA) | payer OTHER, SELFPAY | PROVIDERS: PCP Family Medicine; Visit Provider Family Medicine | DX: I10 Essential (primary) hypertension (principal); E11.9 Type 2 diabetes mellitus without complications; E03.9 Hypothyroidism, unspecified; Z00.00 Encounter for general adult medical examination without abnormal findings | CPT/HCPCS: 80053; 80061; 83036; 84443; 85025 ==

== ENCOUNTER 2025-05-25 11:31 | Emergency (ER) | payer OTHER, SELFPAY ==
[2025-05-25 11:37] VITALS: BP 142/84; PULSE 73; RESP 16; TEMP 37.1; O2SAT 100; BMI 31.0
--- OUTSIDE RECORDS SUMMARY | 2025-05-25 11:37 | XMS_ITS | Data Portability ---
Author Organization JO[facility] Iván Cordero [facility], [place], [facility] Address [address] [address] Assessment No assessment recorded. Plan of Treatment Reminders Order Date Submit Date Provider Last Modified By Organization Details Last Modified Time Details Appointments None recorded . Lab None recorded . Referral None recorded . Procedures None recorded . Surgeries None recorded . Imaging US, head + neck, soft tissue - [id number] 05/03/20 23 [email or web address] 2 [facility] ([facility]), [address] [place] [address], [id number], 3 11:17:14 Medication Orders None recorded . Patient TargetsNo targets recorded. Patient InstructionsNo instructions recorded. Reason for Referral None Reported. Results Created Date Observation Date Name Description Value Unit Range Abnormal Flag Note LastModifiedBy Organization Detail LastModifiedTime 02/07/20 25 02/06/2025 COLOG UARD cologuard result reportable Sample Could Not Be Proces sed n/a The Colog uard (TM) test was assig todd to this speci men. An empty colle ction kit was recei martin in the labor atory . The patie nt will be conta cted to initi ate a new sampl e colle ction . Not Available [employer] [address], [place], [address], 02/06/2025 03:07:53 Result Notes None recorded. Medical Equipment None Reported. Medications Name Sig Start Date Stop Date Status Note LastModified by Organization Details LastModified Time doxycyclin e hyclate 100 mg capsule take 1 capsule BY MOUTH EVERY DAY active Not Available Not Available No t Available fluconazol e 200 mg tablet TAKE 1 TABLET BY MOUTH ONCE WEEKLY FOR SIX MONTHS active Not Available Not Available No t Available doxycyclin e hyclate 50 mg capsule take 1 capsule BY MOUTH EVERY DAY WITH FULL GLASS OF WATER AND MEAL. DO NOT LAY DOWN FOR 30 MINUTES AFTER TAKING MEDICATIO N active Not Available Not Available No t Available carvedilol 3.125 mg tablet TAKE 1 TABLET BY MOUTH TWICE DAILY active Not Available Not Available No t Available levothyrox ine 50 mcg tablet TAKE 1 TABLET BY MOUTH EVERY DAY active Not Available Not Available No t Available pantoprazo le 40 mg tablet,del ayed release TAKE 1 TABLET BY MOUTH EVERY DAY active Not Available Not Available No t Available ranitidine 150 mg tablet two times daily 2015 active Recorded 6 5:49PM by Tahir Javier MD, Office Visit; Refill Quantity: 60; Tablet; Not Available Not Available Not Available glimepirid e 4 mg tablet TAKE 1 TABLET BY MOUTH TWICE DAILY active Not Available Not Available No t Available fluticason e propionate 50 mcg/actuat ion nasal spray,susp ension daily each nares 2014 active Recorded 6 9:21AM by Italia Fong LPN, Office Visit; Refill Quantity: 1; Puff; Not Available Not Available Not Available doxycyclin e hyclate 100 mg tablet two times daily 2015 active Recorded 6 5:37PM by Tahir Javier MD, Refill Request; Refill Quantity: 60; Tablet; Not Available Not Available Not Available itraconazo le daily 2015 active MAY FILL 3 MONTHS IN ONE CALENDAR YEAR. [place] APPROVAL 09/06/15-. CASE #[id number] VO RM/SE; 9; Recorded 6 4:40PM by Silvina Miranda RN (Authoriz ed through Tahir Jaiver MD), Office Visit; Refill Quantity: 60; Capsule; Not Available Not Available Not Available lisinopril -hydrochlo rothiazide daily 2015 active Recorded 6 4:40PM by Silvina Miranda RN, Office Visit; Refill Quantity: 30; Tablet; Not Available Not Available Not Available sumatripta n succinate as needed 2013 active Recorded 5 3:44PM by Silvina Miranda RN, Office Visit; Refill Quantity: 9; Tablet; Not Available Not Available Not Available metformin daily 2015 active Recorded 6 7:51AM by Tahir Javier MD, Refill Request; Refill Quantity: 30; Tablet; Not Available Not Available Not Available THMS Levothyrox ine Sodium daily 2015 active VO RM/SE; 9; Recorded 6 12:15PM by Silvina Miranda RN (Authoriz ed through aThir Javier MD), Refill Request; Refill Quantity: 30; Tablet; Not Available Not Available Not Available desvenlafa xine succinate ER 50 mg tablet,ext ended release 24 hr TAKE 1 TABLET BY MOUTH EVERY DAY active Not Available Not Available No t Available desvenlafa xine succinate ER 100 mg tablet,ext ended release 24 hr TAKE 1 TABLET BY MOUTH EVERY DAY active Not Available Not Available No t Available Soolantra 1 % topical cream APPLY TO A CLEAN, DRY FACE EVERY MORNING active Not Available Not Available No t Available Vitals None Recorded Social History None recorded. Functional Status None recorded. Mental Status None recorded. Family History Nothing Reported Notes:Family Members In Gene ral: Hypercholesterolemia Father: Hypertension, Diabetes Mellitus Heart disease in male family member before age 55, Heart disease in female family member before age 65, Arthritis, Completed Stroke Mother: Thyroid problems Sister: Diabetes Mellitus Medical History No medical history recorded. Gynecological HistoryNo gynecological history recorded. Obstetrics History GPAL:G 0 P 0 0 0 0 Past Encounters Encounter ID Performer Location Encounter Start Date Encounter Closed Date Diagnosis/Indication Diagnosis SNOMED-CT Code Diagnosis ICD10 Code Diagnosis IMO Codes Diagnosis Note [id number] Tahir Javier MD [facility] ([facility]) [address] [place] [address] 05/03/2023 14:25:30 05/03/2023 17:47:59 Edema [id number] R60.9 Health Concerns Section Related Observation LastModified by Organization Detai ls LastModified Time None Recorded Concern Status LastModified by Organization Details LastModified Time None Recorded Advance Directives Directive None Recorded Payers Insurance Date Sequence Insurance Name Policy Number Policy Huynh Covered Member ID Huynh Member ID Guarantor Name 05/11/2023 [id number] Crissy Liang [id number] Crissy Liang OBGyn Episode No OBEpisode recorded.
--- OUTSIDE RECORDS SUMMARY | 2025-05-25 11:37 | XMS_ITS | Patient Health Record ---
Author Organization [facility] Address [address] [place] [address] Support Name Relationship Address Phone Garth, Crissy Guarantor Unknown Reason For Referral No Information Medications Medication SIG (Take, Route, Frequency, Duration) Notes Start Date End Date Status atorvastatin 20 MG Oral Tablet atorvastatin 20 MG Oral Tablet 12/17/2011 Active cetirizine hydrochloride 10 MG Oral Tablet cetirizine hydrochloride 10 MG Oral Tablet 01/13/2013 Active Propranolol Propranolol 02/02/2014 Acti ve Levothyroxine Sodium 0.05 MG Oral Capsule Levothyroxine Sodium 0.05 MG Oral Capsule 12/17/2011 Active Sumatriptan 100 MG Oral Tablet Sumatriptan 100 MG Oral Tablet 01/12/2012 Active doxycycline hyclate 100 MG Oral Tablet doxycycline hyclate 100 MG Oral Tablet 01/13/2013 Active Social History Social History Additional Details Category Social Info Options Details zzMigrated Social History Migrated Social History Smoking Status:Smokes tobacco daily (finding) Plan Of Treatment No Information
--- NOTE | 2025-05-25 11:55 | XRR_ITS ---
PROCEDURE INFORMATION: Exam: XR Right Hip Exam date and time: 05/25/2025 12:17 PM Age: 60 years old Clinical indication: Hip pain; Right hip; Additional info: R hip/leg pain S/P mauled by cow TECHNIQUE: Imaging protocol: Radiologic exam of the right hip. Views: 1 view hip with pelvis when performed. COMPARISON: CT kidney stone [id number] 11/14/2022 6:47 AM FINDINGS: Bones/joints: No acute fracture or dislocation. Soft tissues: Unremarkable. XR/XR hip RT 2-3V wo/w pel* [id number] IMPRESSION: No acute fracture or dislocation.
--- NOTE | 2025-05-25 11:55 | CT_ITS ---
WS: [id number] CT THORACIC SPINE TECHNIQUE: Noncontrast CT of the thoracic spine with coronal and sagittal reformatted images. CLINICAL INFORMATION: mid/upper back pain s/p mauled by cow, pressed up against COMPARISON: None. DLP: 1077.[address] scans at [facility] use at least one of these dose optimization techniques: automated exposure control; mA and/or kV adjustment per patient size (includes targeted exams where dose is matched to clinical indication); or iterative reconstruction. FINDINGS: Mild thoracic curve. Mild thoracic kyphosis. Hypertrophic changes thoracic spine with ankylosis. Ossification along the nuchal ligament. No acute compression fractures. Chronic appearing fracture involving the spinous process tip at C7. No acute fractures. Disc osteophyte complexes at T1-T3. Adrenal glands are normal. Small esophageal hiatal hernia. CT/CT thoracic spin wo con* [id number] IMPRESSION: No acute thoracic spine findings
--- NOTE | 2025-05-25 11:55 | XRR_ITS ---
PROCEDURE INFORMATION: Exam: XR Right Hand Exam date and time: 05/25/2025 12:17 PM Age: 60 years old Clinical indication: Pain; Hand; Right; Additional info: Pain dorsum R hand just distal to wrist TECHNIQUE: Imaging protocol: Radiologic exam of the right hand. Views: 3 or more views. COMPARISON: No relevant prior studies available. FINDINGS: Bones/joints: No acute fracture or dislocation. Interphalangeal, metacarpophalangeal, and carpal degenerative changes are seen. Some old ossific fragments and/or calcification may be present at a few interphalangeal joints. Soft tissues: Normal. XR/XR hand RT min 3V* [id number] IMPRESSION: No acute fracture or dislocation.
--- NOTE | 2025-05-25 11:55 | XRR_ITS ---
PROCEDURE INFORMATION: Exam: XR Right Femur Exam date and time: 05/25/2025 12:17 PM Age: 60 years old Clinical indication: Pain; Thigh; Right; Additional info: R hip/leg pain S/P mauled by cow TECHNIQUE: Imaging protocol: Radiologic exam of the right femur. Views: 2 views. COMPARISON: CT kidney stone [id number] 11/14/2022 6:47 AM FINDINGS: Bones/joints: No acute fracture or dislocation. Hip and knee degenerative changes Soft tissues: Unremarkable. XR/XR femur RT min 2V* [id number] IMPRESSION: No acute fracture or dislocation.
--- NOTE | 2025-05-25 11:55 | CT_ITS ---
WS: [id number] CT CHEST TECHNIQUE: Noncontrast CT of the chest with coronal and sagittal reformatted images. CLINICAL INFORMATION: mid/upper back pain s/p mauled by cow, pressed up against COMPARISON: None. DLP: 566.[address] scans at [facility] use at least one of these dose optimization techniques: automated exposure control; mA and/or kV adjustment per patient size (includes targeted exams where dose is matched to clinical indication); or iterative reconstruction. FINDINGS: Lungs are well aerated. No pneumothorax. No evidence of pulmonary contusion. The ascending aorta measures 3.7 cm. Mild aortic calcification. No mediastinal or hilar lymphadenopathy. No axillary lymphadenopathy. Tiny esophageal hiatal hernia. Cholecystectomy clips. Adrenal glands are normal. Fatty atrophy of the pancreas. No visualized rib fractures. Calcified nodules and granulomas RIGHT lower lobe. CT/CT chest wo con [id number] IMPRESSION: 1. No acute traumatic chest findings
--- NOTE | 2025-05-25 12:13 | ED_ITS ---
HPI - Back Pain/Injury General: Chief Complaint: Back Pain/Injury Stated Complaint: Hit by a cow SOB Neck back Pain R arm leg swelling Time Seen by Provider: 05/25/25 11:39 History of Present Illness: Patient presenting to the emergency department after she was molded by a cow, reports that she got stuck in the enclosure and was pushed by the cow against a metal fence and then into the ground, short duration of event, did not lose consciousness, complaining of pain to the right thigh, mildly to the right hand, most pain is in the middle of the upper back and right side of the mid back into the axillary region, mild shortness of breath, no headache or neck pain currently, able to ambulate but with pain, no abdominal pain. Related Data Home Medications ?Medication ?Instructions ?Recorded ?Confirmed ivermectin 1 % topical cream 1 applic topical DAILY 05/25/25 (Soolantra) carvedilol 3.125 mg tablet 3.125 mg PO BID 05/25/25 doxycycline hyclate 100 mg capsule 100 mg PO DAILY PRN preventative 05/25/25 05/25/25 therapy glimepiride 4 mg tablet 4 mg PO BID 05/25/25 5 levothyroxine 50 mcg tablet 50 mcg PO QAM 05/25/2502/09 pantoprazole 40 mg tablet,delayed 40 mg PO DAILY 05/2505/25/25 release Previous Rx's ?Medication ?Instructions ?Recorded desvenlafaxine succinate 50 mg 50 mg PO DAILY #30 tabs 05/24/24 tablet,extended release 24 hr cyclobenzaprine 10 mg tablet 10 mg PO TID PRN muscle s pasm 5 05/25/25 days #15 tabs ibuprofen 600 mg tablet 600 mg PO Q6H PRN pain #30 t abs 05/25/25 ondansetron 8 mg disintegrating 8 mg PO Q8H PRN nausea and 05/25/25 tablet vomiting 5 days #10 tabs oxycodone-acetaminophen 5 mg-325 1 tab PO Q6H PRN pain 3 days #12 05/25/25 mg tablet (Percocet) tabs Allergies Allergy/AdvReac Type Severity Reaction Status Date / Time strawberry Allergy ALGY-Anaphy Verified 04/22/23 11:09 laxis lisinopril AdvReac Coughing Verified 04/22/23 11:09 [facility] ED PFS: Medical History Immunization counseling High risk medication use Swelling of both parotid glands Inflammatory arthritis Elevated LFTs Diabetes mellitus Diagnosed in 2015-on medication. Managed by Dr. Pizano. 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 Was on medication in the past. Was taken off medication and 2020 and is doing well. Migraine Controlled with sumatriptan as needed. Does not have a neurologist and follows up with primary care provider Hypothyroidism Diagnosed in 1999 and controlled with medication managed by PMD. Does not have an heading up machine operator. HTN (hypertension), benign 2018--controlled with medication. Managed by primary care provider Surgical History Hx of sigmoidoscopy (04/23/20) History of hysteroscopy Had some sort of her hysteroscopic procedure by Dr. Lam in the 1980s and at this time was diagnosed with having 2 cervixes. She does not remember many details about this procedure History of tonsillectomy At the age of 7 History of cholecystectomy Laparoscopic procedure in 2009 Family History Mother Hypertension Thyroid disease Family/Other Breast cancer paternal aunt, diagnosed in her 60s Sister Diabetes Stroke x 2 Heart disease Renal cancer Father Diabetes Heart disease Hyperlipidemia Brother Heart disease Denies family history of Colon cancer Ovarian cancer Anesthesia complication Bleeding disorder Uterine cancer Social History Smoking and tobacco/nicotine status: never used tobacco/nicotine Physical Exam Narrative: EXAM NARRATIVE: Gen: A&Ox4, no acute distress, nontoxic appearing HEENT: Normocephalic, atraumatic, no periorbital ecchymosis no scalp or facial contusions hematomas or lacerations, no palpable depressed skull fracture, no hemotympanum, no Stringer sign, no scleral icterus, external ears normal, moist mucous membranes Neck: Supple, full range of motion, no observable masses, no midline cervical spinal tenderness to palpation Lungs: No Respiratory distress, Lungs clear to auscultation bilaterally no rales, rhonchi, wheezing, tenderness to palpation to the right axillary and right mid back region CV: Regular rate and rhythm, no murmur, no pitting edema to lower extremities bilaterally Abdomen: Soft, nondistended, nontender to palpation MSK: No joint swelling, FROM all 4 extremities, tenderness palpation to the right mid and proximal thigh without significant swelling or deformity, mild tenderness with ranging of the right hip but no limb length discrepancy and active and passive range of motion intact, patient able to ambulate without assistance, she does have mild tenderness and bruising to the dorsal aspect of the right hand just distal to the wrist with normal active and passive range of motion of the wrist, normal dance professor strength, normal finger movement Skin: No rashes, petechiae, lesions. Normal color per patient. Neuro: Alert and oriented, no slurred speech, sensation and strength grossly intact all 4 extremities Psych: Appropriate for situation. Course Reevaluation(s): Reevaluation #1: Patient with some improvement in her pain, trauma workup in the ED negative with no signs of acute traumatic injury or fracture on imaging, patient able to ambulate, stable for discharge with multimodal pain therapy, NSAIDs, muscle relaxants, ice to the most painful areas, rest, return precautions discussed prior to discharge Time: 14:44 Vital Signs: Vital signs: Vital Signs Temperature 98.7 F 05/25/25 11:37 Pulse Rate 72 05/25/25 14:07 Respiratory Rate 16 05/25/25 11:37 Blood Pressure 153/89 05/25/25 14:07 Pulse Oximetry 99 05/25/25 14:07 Oxygen Delivery Me thod Room Air 05/25/25 14:07 MDM - Back Pain/Injury Medical Decision Making 60-year-old female presenting to the emergency department with pain after an incident in which she was struck against a metal fence by a cow that recently broke the calf, she does report she was knocked to the ground, she did not sustain any open or penetrating wounds, her predominant pain is most severe in the mid back, she has no lumbar tenderness to palpation, she has pain to the right thigh right hip right hand as well as the right side of the mid back into the axillary region, stable vital signs, no neurologic deficits, plan for imaging to rule out fracture, pain control, reassess for disposition. Clinically no concern for intra-abdominal injury, lumbar spinal injury, or intracranial injury based on physical exam and history although considered. Labs Radiology Impressions Chest CT 05/25/25 11:55 IMPRESSION: 1. No acute traumatic chest findings Femur X-Ray 05/25/25 11:55 IMPRESSION: No acute fracture or dislocation. Hand X-Ray 05/25/25 11:55 IMPRESSION: No acute fracture or dislocation. Hip/Pelvis X-Ray 05/25/25 11:55 IMPRESSION: No acute fracture or dislocation. Thoracic Spine CT 05/25/25 11:55 IMPRESSION: No acute thoracic spine findings All radiology interpretation(s) finalized by discharge ED provider radiology interpretation(s): CT thoracic spine and chest negative for fracture or pneumothorax, hand x-ray hip x-ray and femur x-ray on the right negative for fracture Discharge Plan Discharge Patient Disposition: Home Clinical Impression: Back strain Qualifiers: Encounter type: initial encounter Qualified Code(s): S39.012A - Strain of muscle, fascia and tendon of lower back, initial encounter Condition: Stable Prescriptions: New ondansetron 8 mg tablet,disintegrating 8 mg PO Q8H PRN (Reason: nausea and vomiting) 5 Days Qty: 10 0RF oxycodone-acetaminophen [Percocet] 5-325 mg tablet 1 tab PO Q6H PRN (Reason: pain) 3 Days Qty: 12 0RF ibuprofen 600 mg tablet 600 mg PO Q6H PRN (Reason: pain) Qty: 30 0RF cyclobenzaprine 10 mg tablet 10 mg PO TID PRN (Reason: muscle spasm) 5 Days Qty: 15 0RF No Action ivermectin [Soolantra] 1 % cream 1 applic topical DAILY desvenlafaxine succinate 50 mg tablet extended release 24 hr 50 mg PO DAILY Qty: 30 11RF doxycycline hyclate 100 mg capsule 100 mg PO DAILY PRN (Reason: preventative therapy) carvedilol 3.125 mg tablet 3.125 mg PO BID levothyroxine 50 mcg tablet 50 mcg PO QAM pantoprazole 40 mg tablet,delayed release (DR/EC) 40 mg PO DAILY glimepiride 4 mg tablet 4 mg PO BID Discharge Orders: Discharge ED (Routine); Ordered 05/25/25 Ordered By: Obinna Javier Referrals: Twan Pizano MD [Primary Care Provider, Family Practice] Patient Instructions: Opioid Safety, Pain Management, Patient Portal & Evelyn Instructions, Low Back Strain (ED) Print Language: Turkmen Coding Level of Care Code ED Divisional Storekeeper for Jg Donaldson
[2025-05-25] MEDS: morphine 4 mg/mL SDV 1 mL 6 MG IVP (12:19)
[2025-05-25 13:21] VITALS: BP 144/87; PULSE 73; O2SAT 97
[2025-05-25 14:07] VITALS: BP 153/89; PULSE 72; O2SAT 99
[2025-05-25 15:24] VITALS: BP 138/68; PULSE 78; O2SAT 98
== END 2025-05-25 15:25 | disposition home or self-care (01) ==
PROVIDERS: Emergency Provider Student in an Organized Health Care Education/Training Program; PCP Family Medicine
DX: S39.012A Strain of muscle, fascia and tendon of lower back, initial encounter (principal); W55.22XA Struck by cow, initial encounter; E11.9 Type 2 diabetes mellitus without complications; I10 Essential (primary) hypertension
CPT/HCPCS: 71250; 72128; 73130; 73502; 73552; 96374; 96375; 99285; J1885; J2270

== ENCOUNTER → 2025-05-29 08:04 | Outpatient (BNVA) | payer OTHER, SELFPAY | PROVIDERS: PCP Family Medicine; Visit Provider Family Medicine | DX: T14.8XXA Other injury of unspecified body region, initial encounter (principal); M79.10 Myalgia, unspecified site; X58.XXXA Exposure to other specified factors, initial encounter | CPT/HCPCS: 80053; 85025 ==

== ENCOUNTER 2025-07-17 08:02 | Outpatient (CLI) | payer OTHER, SELFPAY ==
--- NOTE | 2025-07-17 08:08 | XR_ITS ---
WS: [id number] Left knee, 3 views, 07/17/2025 Clinical Data: left knee pain Comparison: Left knee, 04/22/2023 Findings: No fractures or dislocations are seen. There is narrowing of the medial and lateral joint compartments with spurring of the medial lateral tibial plateau and medial femoral condyle. The patella shows spurring and irregularity. The soft tissues are unremarkable. XR/XR knee LT 3V* [id number] Impression: 1. Negative for fracture or dislocation. 2. Tricompartment osteoarthritis.
== END 2025-07-17 08:03 | disposition home or self-care (01) ==
PROVIDERS: PCP Family Medicine; Visit Provider Family Medicine
DX: M17.12 Unilateral primary osteoarthritis, left knee (principal)
CPT/HCPCS: 73562; 80053; 80061; 83036; 85025